=== PATIENT | female | born 1970 | race Caucasian/White ===

== ENCOUNTER 2018-03-02 09:22 | Inpatient (IN) ==
[2018-03-02] MEDS ORDERED: Sod Chloride 0.9% Inj 1,000 ML IV.SIG SCH (09:45)
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
[2018-03-02 10:18] LABS: Baso # (Auto) 0.1 th/mm3 (0.0-0.2); Baso % (Auto) 0.3 % (0.0-2.0); Eos % (Auto) 0.1 % (0.0-4.0); Hematocrit 42.8 % (35.0-46.0); Hemoglobin 14.3 gm/dL (11.6-15.3); Lymph # (Auto) 1.9 th/mm3 (1.0-4.8); Lymph % (Auto) 8.1 % (9.0-44.0); Mean Corpuscular HGB Conc 33.4 % (32.0-36.0); Mean Corpuscular Hemoglobin 29.2 pg (27.0-34.0); Mean Corpuscular Volume 87.6 fL (80.0-100.0); Mean Platelet Volume 8.3 fL (7.0-11.0); Mono # (Auto) 0.9 th/mm3 (0.0-0.9); Mono % (Auto) 3.7 % (0.0-8.0); Neut # (Auto) 20.6 th/mm3 (1.8-7.7); Neut % (Auto) 87.8 % (16.0-70.0); Platelet Count 389 th/mm3 (150-450); Red Blood Count 4.89 mil/mm3 (4.00-5.30); Red Cell Distribution Width 13.2 % (11.6-17.2); White Blood Count 23.5 th/mm3 (4.0-11.0)
[2018-03-02 10:22] LABS: Chloride 99 meq/L (98-107); Potassium 3.3 meq/L (3.5-5.1); Sodium 134 meq/L (136-145)
[2018-03-02 10:26] LABS: Albumin 3.7 g/dL (3.4-5.0); Anion Gap 9 meq/L (5-15); Blood Urea Nitrogen 22 mg/dL (7-18); Glucose,Random 112 mg/dL (74-106)
[2018-03-02 10:28] LABS: Activated Partial Thrombo Time 28.4 sec (24.3-30.1); INR 1.1 Ratio; Prothrombin Time 10.7 sec (9.8-11.6)
[2018-03-02 10:29] LABS: Bilirubin,Urine Negative (Negative); Clarity,Urine Clear (Clear); Color,Urine Yellow (Yellw/Straw); Glucose,Urine (UA) Negative (Negative); Leukocyte Esterase,Urine Negative (Negative); Nitrite,Urine Negative (Negative); Specific Gravity,Urine Greater/Equal 1.030 (1.002-1.035); Urobilinogen,Urine 0.2 mg/dL (Less than 2)
[2018-03-02 10:29] LABS: Alanine Aminotransferase 19 U/L (10-53); Glomerular Filtration Rate Greater Than 89 mL/min (>89)
[2018-03-02 10:30] LABS: Aspartate Aminotransferase 17 U/L (15-37)
[2018-03-02 10:31] LABS: Total Protein 8.7 g/dL (6.4-8.2)
[2018-03-02 10:32] LABS: Alkaline Phosphatase 95 U/L (45-117); Creatine Kinase 117 U/L (26-192)
[2018-03-02 10:37] LABS: Amphetamine Screen,Urine Pos (Neg); Barbiturate Screen,Urine Neg (Neg)
[2018-03-02 10:38] LABS: Cannabinoid Screen,Urine Neg (Neg); Cocaine Screen,Urine Neg (Neg)
[2018-03-02 10:39] LABS: Bacteria,Urine Few /hpf; Squamous Epithelial Cell,Urine 0-5 /hpf (0-5)
[2018-03-02 10:42] LABS: Opiate Screen,Urine Pos (Neg)
--- NOTE | 2018-03-02 10:43 | CT ---
EXAM DATE: 03/02/2018 10:37 AM EDT AGE/SEX: 48 years / Female INDICATIONS: Altered mental status. CLINICAL DATA: This is the patient's initial encounter. Patient reports that signs and symptoms have been present for 1 day and indicates a pain score of 0/10. MEDICAL/SURGICAL HISTORY: None. None. RADIATION DOSE: 47.30 CTDI (mGy) COMPARISON: No prior exams available for comparison. TECHNIQUE: CT of the head without contrast. Using automated exposure control and adjustment of the mA and/or kV according to patient size, radiation dose was kept as low as reasonably achievable to ob tain optimal diagnostic quality images. DICOM format image data is available electronically for revi ew and comparison. FINDINGS: Cerebrum: The ventricles are normal for age. No evidence of midline shift, mass lesion, hemorrhage or acute infarction. No extraaxial fluid collections are seen. Posterior Fossa: The cerebellum and brainstem are intact. The 4th ventricle is midline. The cerebe llopontine angle is unremarkable. Extracranial: The visualized portion of the orbits is intact. Skull: The calvaria is intact. No evidence of skull fracture. CONCLUSION: No acute intracranial findings. . Electronically signed by: Lawrence Bass MD 03/02/2018 10:42 AM EDT
--- NOTE | 2018-03-02 12:22 | XR ---
EXAM DATE: 03/02/2018 12:16 PM EDT AGE/SEX: 48 years / Female INDICATIONS: Fever CLINICAL DATA: This is the patient's initial encounter. Patient reports that signs and symptoms have been present for 1 day and indicates a pain score of 0/10. MEDICAL/SURGICAL HISTORY: None. None. COMPARISON: No prior exams available for comparison. FINDINGS: Single AP view of the chest The lungs are clear. Cardiomediastinal silhouette within norm al limits. No evidence of pleural effusion or pneumothorax. CONCLUSION: No acute cardiopulmonary disease identified. Electronically signed by: Lawrence Bass MD 03/02/2018 12:21 PM EDT
[2018-03-02] MEDS ORDERED: Vancomycin Inj 1 GM/200 ML PIGGYBACK IV.SIG ONE (12:23)
[2018-03-02] MEDS ORDERED: ACYCLOVIR IV.SIG ONE (12:36)
[2018-03-02] MEDS ORDERED: SODIUM CHLOR 0.9% IV.SIG ONE (12:36)
[2018-03-02] MEDS ORDERED: Potassium Chlor 20 mEq Premix 20 MEQ/100 ML PIGGYBACK IV.SIG ONE (12:44)
[2018-03-02 13:11] LABS: RBC on Tube 4 0 /mm3
[2018-03-02 13:42] LABS: Lymphocytes, CSF 0 %; Neutrophils,CSF 0 %
[2018-03-02] MEDS ORDERED: Acetaminophen 325 MG Tablet PO PRN (13:43)
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
[2018-03-02] MEDS ORDERED: Vancomycin Consult Pharmacy OTHER PRN (13:52)
[2018-03-02] MEDS ORDERED: Vancomycin Inj 1,000 MG in Sodium Chlor 0.9% Inj 250 ML IV.SIG ONE (14:00)
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
[2018-03-02] MEDS ORDERED: SODIUM CHLOR 0.9% IV.SIG SCH (22:00)
[2018-03-02] MEDS ORDERED: ACYCLOVIR IV.SIG SCH (22:00)
[2018-03-02] MEDS: Piperacil/Tazo 3.375 GM Premix 50 ML IV.SIG SCH (23:42)
[2018-03-03] MEDS ORDERED: Vancomycin Inj 1 GM/200 ML PIGGYBACK IV.SIG SCH (02:00)
[2018-03-03] MEDS: Piperacil/Tazo 3.375 GM Premix 50 ML IV.SIG SCH ×5 (05:16→21:39)
[2018-03-03 06:54] LABS: Chloride 103 meq/L (98-107); Potassium 3.1 meq/L (3.5-5.1); Sodium 137 meq/L (136-145)
[2018-03-03 06:55] LABS: Baso # (Auto) 0.1 th/mm3 (0.0-0.2); Baso % (Auto) 0.4 % (0.0-2.0); Eos # (Auto) 0.1 th/mm3 (0.0-0.4); Eos % (Auto) 0.4 % (0.0-4.0); Hematocrit 39.9 % (35.0-46.0); Hemoglobin 13.3 gm/dL (11.6-15.3); Lymph # (Auto) 2.4 th/mm3 (1.0-4.8); Lymph % (Auto) 14.4 % (9.0-44.0); Mean Corpuscular HGB Conc 33.4 % (32.0-36.0); Mean Corpuscular Hemoglobin 29.6 pg (27.0-34.0); Mean Corpuscular Volume 88.6 fL (80.0-100.0); Mean Platelet Volume 9.2 fL (7.0-11.0); Mono # (Auto) 1.5 th/mm3 (0.0-0.9); Mono % (Auto) 8.7 % (0.0-8.0); Neut # (Auto) 12.8 th/mm3 (1.8-7.7); Neut % (Auto) 76.1 % (16.0-70.0); Platelet Count 363 th/mm3 (150-450); White Blood Count 16.9 th/mm3 (4.0-11.0)
[2018-03-03 07:11] LABS: Anion Gap 11 meq/L (5-15); Blood Urea Nitrogen 14 mg/dL (7-18); Calcium 8.1 mg/dL (8.5-10.1); Carbon Dioxide 22.7 meq/L (21.0-32.0); Glomerular Filtration Rate Greater Than 89 mL/min (>89); Glucose,Random 97 mg/dL (74-106)
--- NOTE | 2018-03-03 11:13 | P.PNIM ---
Subjective Interval history: Ms. Lui was afebrile with stable VS overnight. Patient reports that she feels ok; she denies chest pain, shortness of breath, or any other pain. She provides some supplemental information that her " " is "[place]." Physical Exam Vital signs: Vital Signs 03/02/18 11:25 03/02/18 13:37 03/02/18 13:40 Temperature 98.3 F Pulse Rate 62 Respiratory Rate 14 Blood Pressure 153/93 H 116/69 Pulse Oximetry 100 100 03/02/18 13:59 03/02/18 14:00 03/02/18 14:01 Temperature 99.2 F Pulse Rate 50 L 68 52 L Respiratory Rate 33 H 20 34 H Blood Pressure 118/71 164/90 H 118/71 Pulse Oximetry 100 96 100 03/02/18 14:59 03/02/18 15:00 03/02/18 15:59 Temperature Pulse Rate 64 66 68 Respiratory Rate 26 H 24 26 H Blood Pressure 119/63 Pulse Oximetry 95 96 99 03/02/18 16:00 03/02/18 19:26 03/02/18 19:30 Temperature Pulse Rate 70 106 H Respiratory Rate 27 H 20 Blood Pressure 113/70 Pulse Oximetry 99 96 99 03/02/18 20:00 03/02/18 20:46 03/02/18 21:00 Temperature 99.5 F Pulse Rate 71 72 92 H Respiratory Rate 25 H 25 H Blood Pressure 169/89 H 154/80 H Pulse Oximetry 97 97 03/03/18 00:00 03/03/18 04:00 03/03/18 05:18 Temperature Pulse Rate 86 63 66 Respiratory Rate 18 20 20 Blood Pressure 138/95 H 162/85 H 187/95 H Pulse Oximetry 96 95 97 03/03/18 06:40 03/03/18 07:30 03/03/18 08:00 Temperature 99.1 F Pulse Rate 65 64 Respiratory Rate 20 18 Blood Pressure 149/79 H 133/69 Pulse Oximetry 96 97 98 Intake & Output 03/02/18 03/03/18 03/03/18 18:59 06:59 18:59 Intake Total 1100 / 1100 1560 / 1560 Balance 1100 / 1100 1560 / 1560 Weight 50 kg 49.3 kg Intake: IV 1100 / 1100 1560 / 1560 NS + KCl 20 mEq Inj 1,000 ML @ 1000 / 1000 100 mls/hr IV.CONT .Q10H [facility] Rx #:[id number] Zovirax Inj 500 MG In NS Inj 110 / 110 100 ML @ 110 mls/hr IV.SIG ONCE ONE Rx#:[id number] Zosyn 3.375 GM Premix 50 ML @ 100 / 100 100 mls/hr IV.SIG Q6H [facility] Rx#: [id number] KCl 20 mEq Premix Inj 20 meq In 0 / 0 100 ml @ 50 mls/hr IV.SIG ONCE ONE Rx#:[id number] NS Inj 1,000 ML @ Wide Open IV. 1000 / 1000 SIG [facility] Rx#:[id number] Rocephin Inj 2,000 MG In NS Inj 100 / 100 100 ML @ 200 mls/hr IV.SIG ONCE ONE Rx#:[id number] Other: Date of Last Bowel Movement 03/01/18 Narrative: General: No acute distress Eyes: EOM grossly I HENT: Normal mucus membranes Skin: No visible lesions; no excessive bruising CV: Regular rate and rhythm; normal perfusion Resp: CTAB; normal rate Abdomen/Back: Normal BS. No pain to palpation. Ext: Grossly normal ROM and motor function Neuro: Awake/alert. Patient oriented to person; reports continued confusion about surroundings. Grossly normal CN. Grossly normal peripheral motor/sensory function - Urinary Catheter Management Straight Cath placed during this visit: yes Reason for continuing: Not indwelling catheter Insertion date: 03/02/18 Insertion time: 10:15 Results - Labs CBC & Chem 7: 03/03/18 05:40 03/03/18 05:40 Laboratory Results - last 24 hr 03/02/18 03/02/18 03/02/18 10:10 12:40 12:40 CBC w Diff WBC RBC Hgb Hct MCV MCH MCHC RDW Plt Count MPV Neut % (Auto) Lymph % (Auto) [place] % (Auto) Eos % (Auto) Baso % (Auto) Neut # (Auto) Lymph # (Auto) [place] # (Auto) Eos # (Auto) Baso # (Auto) WBC Differential Differential Comment Sodium Potassium Chloride Carbon Dioxide Anion Gap BUN Creatinine Estimated GFR POC Glucose Random Glucose Lactic Acid Calcium Magnesium TSH 0.299 L CSF Volume (1) 1.0 CSF Supernat Color (1) Clear CSF Gross Blood (1) 0 CSF Volume (2) 1.0 CSF Supernat Color (2) Clear CSF Gross Blood (2) 0 CSF Volume (3) 1.0 CSF Supernat Color (3) Clear CSF Gross Blood (3) 0 CSF Volume (4) 2.5 CSF Supernat Color (4) C CSF Gross Blood (4) 0 CSF WBC (4) 0 CSF RBC (4) 0 CSF Neutrophils % 0 CSF Lymphocytes % 0 CSF Glucose CSF Total Protein 35.3 03/02/18 03/02/18 03/02/18 12:40 13:00 18:33 CBC w Diff WBC RBC Hgb Hct MCV MCH MCHC RDW Plt Count MPV Neut % (Auto) Lymph % (Auto) [place] % (Auto) Eos % (Auto) Baso % (Auto) Neut # (Auto) Lymph # (Auto) [place] # (Auto) Eos # (Auto) Baso # (Auto) WBC Differential Differential Comment Sodium Potassium Chloride Carbon Dioxide Anion Gap BUN Creatinine Estimated GFR POC Glucose 124 H Random Glucose Lactic Acid 0.9 Calcium Magnesium TSH CSF Volume (1) CSF Supernat Color (1) CSF Gross Blood (1) CSF Volume (2) CSF Supernat Color (2) CSF Gross Blood (2) CSF Volume (3) CSF Supernat Color (3) CSF Gross Blood (3) CSF Volume (4) CSF Supernat Color (4) CSF Gross Blood (4) CSF WBC (4) CSF RBC (4) CSF Neutrophils % CSF Lymphocytes % CSF Glucose 81 H CSF Total Protein 03/02/18 03/03/18 03/03/18 22:24 05:40 05:40 CBC w Diff Auto diff final WBC 16.9 H RBC 4.50 Hgb 13.3 Hct 39.9 MCV 88.6 MCH 29.6 MCHC 33.4 RDW 13.0 Plt Count 363 MPV 9.2 Neut % (Auto) 76.1 H Lymph % (Auto) 14.4 [place]ick % (Auto) 8.7 H Eos % (Auto) 0.4 Baso % (Auto) 0.4 Neut # (Auto) 12.8 H Lymph # (Auto) 2.4 [place] # (Auto) 1.5 H Eos # (Auto) 0.1 Baso # (Auto) 0.1 WBC Differential . Differential Comment . Sodium 137 Potassium 3.1 L Chloride 103 Carbon Dioxide 22.7 Anion Gap 11 BUN 14 Creatinine 0.50 Estimated GFR Greater than 89 POC Glucose 108 Random Glucose 97 Lactic Acid Calcium 8.1 L D Magnesium TSH CSF Volume (1) CSF Supernat Color (1) CSF Gross Blood (1) CSF Volume (2) CSF Supernat Color (2) CSF Gross Blood (2) CSF Volume (3) CSF Supernat Color (3) CSF Gross Blood (3) CSF Volume (4) CSF Supernat Color (4) CSF Gross Blood (4) CSF WBC (4) CSF RBC (4) CSF Neutrophils % CSF Lymphocytes % CSF Glucose CSF Total Protein 03/03/18 03/03/18 05:40 08:10 CBC w Diff WBC RBC Hgb Hct MCV MCH MCHC RDW Plt Count MPV Neut % (Auto) Lymph % (Auto) [place] % (Auto) Eos % (Auto) Baso % (Auto) Neut # (Auto) Lymph # (Auto) [place] # (Auto) Eos # (Auto) Baso # (Auto) WBC Differential Differential Comment Sodium Potassium Chloride Carbon Dioxide Anion Gap BUN Creatinine Estimated GFR POC Glucose 104 Random Glucose Lactic Acid Calcium Magnesium 1.5 TSH CSF Volume (1) CSF Supernat Color (1) CSF Gross Blood (1) CSF Volume (2) CSF Supernat Color (2) CSF Gross Blood (2) CSF Volume (3) CSF Supernat Color (3) CSF Gross Blood (3) CSF Volume (4) CSF Supernat Color (4) CSF Gross Blood (4) CSF WBC (4) CSF RBC (4) CSF Neutrophils % CSF Lymphocytes % CSF Glucose CSF Total Protein Microbiology 03/02/18 12:50 Blood - Peripheral Aerobic Blood Culture - Preliminary No growth in 1 day 03/02/18 12:50 Blood - Peripheral Anaerobic Blood Culture - Preliminary No growth in 1 day 03/02/18 12:55 Blood - Peripheral Aerobic Blood Culture - Preliminary No growth in 1 day 03/02/18 12:55 Blood - Peripheral Anaerobic Blood Culture - Preliminary No growth in 1 day 03/02/18 12:40 Lumbar Puncture Gram Stain - Final 03/02/18 12:40 Lumbar Puncture CSF Culture - Preliminary No growth in 24 hours - Imaging Impressions Chest X-Ray 03/02/18 11:41 CONCLUSION: No acute cardiopulmonary disease identified. Assessment and Plan - Assessment (1) Leukocytosis Code(s): D72.829 - Elevated white blood cell count, unspecified Status: Acute (2) Substance abuse Code(s): F19.10 - Other psychoactive substance abuse, uncomplicated Status: Acute (3) Encephalopathy acute Code(s): G93.40 - Encephalopathy, unspecified Status: Acute - Plan Mrs. Lui is a 48 yo F with: Neuro Altered mental status Substance abuse History: Patient not oriented; found not responsive this morning [place] negative Labs: WBC 23.5 K (87.8% neutrophils). CMP- mild hyponatremia, K 3.3. TSH 0.299. Lactic acid 0.9. Ammonia negative UDS with amphetamines, opiates. Alcohol negative LP performed; CSF analysis pending O2 saturations/respiration normal Impression: substance induced or metabolic vs infectious etiology -Will give regular diet as awake -Will trend WBC- 23.5k-> 16.9k (03/03) -Will empirically treat for possible bacterial vs viral cause of encephalopathy -IV IV Zosyn -ID consulted -Vanc, Acyclovir d/c'd -monitor blood, urine, CSF cultures Psych Impression: Due to patient reporting not remembering her situation but being oriented to self in association with substance abuse, patient increasingly seems as if she may be withholding information. brief internet search suggests prior arrests. Unclear whether underlying psychiatric disorder is associated with lack of reported memory or substance abuse -Will consider Psychiatry consultation based on improvement Electrolyte abnormalities K 3.1 -Will give oral KCl repletion -Will monitor BMP
[2018-03-03 11:49] LABS: Amphetamine Urine With Conf Neg (Neg)
[2018-03-03 12:00] LABS: Benzodiazepine Urine With Conf Neg (Neg)
[2018-03-03] MEDS ORDERED: Vancomycin Inj 800 MG in Sodium Chlor 0.9% Inj 250 ML IV.SIG SCH (12:00)
--- NOTE | 2018-03-03 22:27 | ECG ---
Date Performed: 03/02/2018 Time Performed: 09:55:35 PTAGE: 48 years EKG: Sinus rhythm POSSIBLE LEFT ATRIAL ENLARGEMENT BORDERLINE RIGHT AXIS DEVIATION BORDERLINE ECG NO PREVIOUS TRACING DOCTOR: Claudine Turpin Interpretating Date/Time 03/03/2018 22:20:29
[2018-03-04] MEDS: Piperacil/Tazo 3.375 GM Premix 50 ML IV.SIG SCH ×4 (03:32→22:07)
[2018-03-04 06:57] LABS: Chloride 99 meq/L (98-107); Potassium 3.7 meq/L (3.5-5.1); Sodium 134 meq/L (136-145)
[2018-03-04 07:01] LABS: Anion Gap 13 meq/L (5-15); Calcium 8.1 mg/dL (8.5-10.1); Carbon Dioxide 22.4 meq/L (21.0-32.0); Glucose,Random 84 mg/dL (74-106)
[2018-03-04 07:02] LABS: Baso # (Auto) 0.1 th/mm3 (0.0-0.2); Baso % (Auto) 0.5 % (0.0-2.0); Blood Urea Nitrogen 11 mg/dL (7-18); Eos # (Auto) 0.2 th/mm3 (0.0-0.4); Hematocrit 38.7 % (35.0-46.0); Hemoglobin 13.1 gm/dL (11.6-15.3); Lymph # (Auto) 2.4 th/mm3 (1.0-4.8); Lymph % (Auto) 14.3 % (9.0-44.0); Mean Corpuscular Hemoglobin 29.8 pg (27.0-34.0); Mean Corpuscular Volume 87.8 fL (80.0-100.0); Mean Platelet Volume 8.7 fL (7.0-11.0); Mono # (Auto) 1.2 th/mm3 (0.0-0.9); Neut # (Auto) 12.9 th/mm3 (1.8-7.7); Neut % (Auto) 77.2 % (16.0-70.0); Platelet Count 351 th/mm3 (150-450); Red Blood Count 4.41 mil/mm3 (4.00-5.30); Red Cell Distribution Width 12.2 % (11.6-17.2); White Blood Count 16.8 th/mm3 (4.0-11.0)
[2018-03-04 07:05] LABS: Glomerular Filtration Rate Greater Than 89 mL/min (>89)
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
[2018-03-04] MEDS ORDERED: Ibuprofen 600 MG Tablet PO PRN (20:46)
[2018-03-04] MEDS ORDERED: VANCOMYCIN TROUGH OTHER ONE (23:45)
[2018-03-05] MEDS: Piperacil/Tazo 3.375 GM Premix 50 ML IV.SIG SCH ×2 (04:19→11:54)
[2018-03-05 06:01] VITALS: PULSE 68
[2018-03-05 08:38] VITALS: BP 128/67; RESP 16; TEMP 98.6
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
[2018-03-05 10:37] VITALS: O2SAT 95
[2018-03-05] MEDS ORDERED: Gadobutrol PF 7.5 MMOL/7.5 ML Vial (for RAD) IV.SIG ONE (11:15)
--- NOTE | 2018-03-05 11:42 | MR ---
EXAM DATE: 03/05/2018 11:27 AM EDT AGE/SEX: 48 years / Female INDICATIONS: Altered mental status. Possible space occupying lesions like abscess or tumor due to altered mental status. CLINICAL DATA: This is the patient's initial encounter. Patient reports that signs and symptoms have been present for 3 days and indicates a pain score of 2/10. MEDICAL/SURGICAL HISTORY: None. None. COMPARISON: HPO, CT HEAD W/O CONTRAST, 03/02/2018. . TECHNIQUE: Multiplanar, multisequence examination of the brain was performed without and with 5.0 ml Gadavist (gadobutrol) contrast as a single exam dose. FINDINGS: Cerebrum: The ventricles are normal for age. No evidence of midline shift, mass lesion, hemorrhage or acute infarction. No extraaxial fluid collections are seen. The pituitary gland and suprasellar cistern are normal in configuration. White Matter: No significant signal abnormalities are seen in the white matter. Posterior Fossa: The cerebellum and brainstem are intact. The 4th ventricle is midline. The cerebel lopontine angle is unremarkable. The cerebellar tonsils are normal in position. Diffusion Imaging: No focal areas of restricted diffusion are seen. No evidence of acute infarction . Extracranial: The visualized portions of the orbits and paranasal sinuses are unremarkable. Post Contrast: No abnormal areas of parenchymal or dural enhancement. No evidence of blood-brain ba rrier breakdown. CONCLUSION: 1. Negative MR Brain with and without contrast. Electronically signed by: Pan Snowden MD 03/05/2018 11:40 AM EDT
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
== END 2018-03-05 16:51 | disposition home or self-care (01) ==
LOC: PHED 09:22 → PHEDA 12:51 → PHICU 13:53 → PH3 03-04 18:40
PROVIDERS: ADMIT Family Medicine; ATTEND Family Medicine